=== PATIENT | female | born 1965 | race Caucasian/White ===

== ENCOUNTER 2016-10-14 15:28 | Emergency (ER) | payer MEDICAID, OTHER ==
[~2016-10-14] VITALS: Ht 172.7 cm; Wt 132.2 kg
[2016-10-14 15:45] VITALS: BP 152/93
[2016-10-14] MEDS ORDERED: KETOROLAC 30 MG/1 ML ONE (15:57)
[2016-10-14] MEDS ORDERED: KETOROLAC 30 MG/1 ML IM ONE (16:00)
[2016-10-14] MEDS ORDERED: PLEASE ENTER ALLERGIES MC SCH ×2 (16:00)
[2016-10-14] MEDS ORDERED: PLEASE ENTER HEIGHT AND WEIGHT MC SCH (16:00)
== END 2016-10-14 17:17 | disposition home or self-care (01) ==
LOC: ED 16:31
DX: M47.896 Other spondylosis, lumbar region (principal); I10 Essential (primary) hypertension
CPT/HCPCS: 72110; 96372; 99284; J1885